=== PATIENT | female | born 1940 | race Caucasian/White ===

== ENCOUNTER 2018-03-12 06:19 | Day surgery (SDC) | payer MEDICARE, OTHER ==
[~2018-03-12] VITALS: Ht 154.9 cm; Wt 96.7 kg
[~2018-03-12 06:19] MED LIST: ALPR.25; ASPI81CH PO; CHOL10002; Eye Drops15 ML; GABA100 PO; LEVO-T112 MCG PO; LEVSOD75 PO; LISI20 PO; LIVALO2 MG; METF500C PO; MOMENI; PRAV20; PROBIOTIC1 EAC1 PO; Prinivil10 MG PO; Stool Softener100 MG
--- NOTE | 2018-03-12 10:07 | NUR ---
03/12/18 López Rao LATE ENTRY NARRATIVE DISCHARGE INSTRUCTIONS REVIEWED WITH PATIENT AND SON, NO QUESTIONS AT THIS TIME. PATIENT VSS, TOLERATING PO FLUIDS WELL. NURSE ASSISTED PATIENT OUT TO HER RIDE HOME.
== END 2018-03-12 08:31 | disposition home or self-care (01) ==
LOC: ORSCSDS 06:19
PROVIDERS: Ophthalmology
PROC: 08RJ3JZ Replacement of Right Lens with Synthetic Substitute, Percutaneous Approach (ICD-10-PCS; principal; 2018-03-12 08:00)
DX: H25.11 Age-related nuclear cataract, right eye (principal); I10 Essential (primary) hypertension; E78.5 Hyperlipidemia, unspecified; E11.9 Type 2 diabetes mellitus without complications; E66.9 Obesity, unspecified; Z68.41 Body mass index [BMI] 40.0-44.9, adult; Z79.82 Long term (current) use of aspirin; Z79.84 Long term (current) use of oral hypoglycemic drugs; Z79.899 Other long term (current) drug therapy
CPT/HCPCS: 82947; J2250; J3010; J3301; J7120; V2632

== ENCOUNTER → 2018-12-31 | Outpatient (CLI) | payer MEDICARE, OTHER | END | disposition home or self-care (01) | LOC: LAB SHORT 12:17 → LAB 12:17 | DX: E11.9 Type 2 diabetes mellitus without complications (principal) | CPT/HCPCS: 82043 ==

== ENCOUNTER 2019-11-20 10:15 | Emergency (ER) | payer MEDICARE, OTHER ==
[~2019-11-20] VITALS: Ht 152.4 cm; Wt 86.2 kg
[2019-11-20] MEDS ORDERED: Percocet 7.5-31 EACH PO (13:36)
== END 2019-11-20 13:51 | disposition home or self-care (01) ==
LOC: ER 10:15
DX: M51.36 Other intervertebral disc degeneration, lumbar region (principal); M54.2 Cervicalgia; I10 Essential (primary) hypertension; E11.9 Type 2 diabetes mellitus without complications; Z88.8 Allergy status to other drugs, medicaments and biological substances; Z88.1 Allergy status to other antibiotic agents; Z79.82 Long term (current) use of aspirin; Z79.899 Other long term (current) drug therapy
CPT/HCPCS: 72100; 72131; 72220; 99284-25; A9270-GY

== ENCOUNTER → 2024-11-09 | Outpatient (CLI) | payer MEDICARE, OTHER ==
[~2024-11-09] MED LIST changes: +Percocet 7.5-31 EACH PO
[2024-11-09 21:18] LABS: Creatinine, Urine Random 81.7 mg/dL (27.00-270.00); Microalb/Creat Ratio UR, Rand 20.318 mg/g (0.000-30.000); Microalbumin, Random Urine 16.6 mg/L (0.000-20.000)
== END ==
LOC: LAB SHORT 16:07 → LAB 16:07
PROVIDERS: Family Medicine
DX: E11.22 Type 2 diabetes mellitus with diabetic chronic kidney disease (principal); E11.42 Type 2 diabetes mellitus with diabetic polyneuropathy; E11.618 Type 2 diabetes mellitus with other diabetic arthropathy
CPT/HCPCS: 82043; 82570